=== PATIENT | male | born 1965 | race Caucasian/White ===

== ENCOUNTER 2020-12-13 08:57 | Inpatient (IN) ==
[2020-12-13] MEDS ORDERED: 0.9 % SODIUM CHLORIDE 2,000 ML IV ONE (09:34)
--- NOTE | 2020-12-13 09:39 | Emergency Department Note ---
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 Per the mother who is here w/ him, he has had worsening SOB w/ audible wheezing over the past few days. While he denies any productive cough, she feels that he has likely had some, and his cough is worse than baseline. Additionally he has been having chills and malaise. Otherwise no N/V. He does have chronic diarrhea but this is unchanged from baseline. No sick contacts, no recent travel. He did have COVID19 PNA some time ago, and has not been vaccinated since then. Related Data Home Medications Medication Instructions Recorded Confirmed ascorbic acid (vitamin C) 500 mg 1 g PO DAILY tab 03/02/19 12/13/20 tablet fish, borage, flaxseed oils-omega 1,200 mg PO DAILY cap 03/02/19 12/13/20 3,6,9 comb no.1 1,200 mg capsule vitamin B complex 1 each PO DAILY 06/07/19 12/13/20 cholecalciferol (vitamin D3) 25 1,000 unit PO DAILY cap 08/17/19 12/13/20 mcg (1,000 unit) capsule Previous Rx's Medication Instructions Recorded albuterol sulfate 90 mcg/actuation 2 inh INHALATION Q6H PRN #1 ea 10/06/20 breath activated powder inhaler levothyroxine 75 mcg tablet See Rx Instructions .ROUTE 11/08/20 .COMPLEX #90 tab Allergies Allergy/AdvReac Type Severity Reaction Status Date / Time Nortriptyline Allergy Severe caused Verified 12/13/20 16:23 blindness trimethoprim [From Bactrim] Allergy Severe Unknown Verified 12/13/20 16:23 Sulfa (Sulfonamide AdvReac Severe Unknown Verified 12/13/20 16:23 Antibiotics) codeine AdvReac Intermediate Gastrointestinal Verified 12/13/20 16:23 Upset iodine AdvReac Intermediate Rash Verified 12/13/20 16:23 sulfamethoxazole AdvReac Intermediate Unknown Verified 12/13/20 16:23 [From Bactrim] Review of Systems ROS ROS Narrative: Narrative: All systems ED: reviewed and negative except as stated. PFSH Narrative Patient History Narrative: Narrative: Medical/Surgical/Family History All Active Problems (Updated 12/13/20 @ 12:19 by Otto Esquivel MD) Sepsis (Acute) Breath shortness (Acute) PNA (pneumonia) (Acute) Headache (Acute) Pneumonia due to 2019 novel coronavirus (Acute) COVID-19 (Acute) CAP (community acquired pneumonia) (Acute) Snoring (Chronic) Insomnia (Chronic) Small bowel problem (Chronic) Indigestion (Chronic) Stye (Chronic) Other diseases of pharynx (Chronic) Sinusitis (Chronic) Hematuria (Chronic) History of cardiac murmur (Chronic) History of petit-mal seizures (Chronic) Hypothyroidism (Chronic) Hyperlipidemia (Chronic) Screening for malignant neoplasm of colon (Chronic) Ureteral calculus (Chronic) Fatty infiltration of liver (Chronic) Gagging episode (Chronic) Cough (Chronic) Special screening for malignant neoplasm (Chronic) Otitis externa (Chronic) Allergic rhinitis (Chronic) Upper respiratory infection (Chronic) History of rectal fissure (Chronic) History of rubella (Chronic) Prostate pain (Chronic) Deaf (Chronic) Thyroid disorder (Chronic) Heart murmur (Chronic) Poor sleep (Chronic) Irritable bowel (Chronic) Other digestive problems (Chronic) Enlarged heart (Chronic) Medical History (Updated 12/13/20 @ 12:19 by Otto Esquivel MD) Allergic rhinitis Cough Deaf Enlarged heart Fatty infiltration of liver Gagging episode Heart murmur Hematuria History of cardiac murmur enlarged heart History of petit-mal seizures History of rectal fissure History of rubella Hyperlipidemia Hypothyroidism Indigestion Insomnia Irritable bowel Other digestive problems sees Dr Orozco, had stricures Other diseases of pharynx or nasophyarynx Otitis externa Poor sleep Prostate pain Problems Screening for malignant neoplasm of colon Sinusitis Small bowel problem Snoring Special screening for malignant neoplasm Stye Thyroid disorder Upper respiratory infection Ureteral calculus Surgical History History of colonoscopy (~09/2014) History of oral surgery too small mouth History of prostate surgery Dr Tabares Family History Mother Thyroid disorder Father , age 37 of cancer Cancer Grandmother Thyroid disorder maternal Osteoporosis maternal Alcoholism paternal Grandfather Osteoporosis maternal Arthritis Family/Other Cancer sibling- unknown specifics Social History Smoking Status: Never smoker Alcohol Intake Frequency: a few times a month Substance Use: does not use Exam Narrative Narrative: Narrative: General Limitations: no limitations General appearance: Present alert and in no apparent distress Head Head: Present atraumatic and normocephalic ENT ENT: Present normal oropharynx and mucous membranes moist Chest Chest: Present normal inspection and symmetric chest wall rise Respiratory Respiratory: Present normal lung sounds bilaterally Cardiovascular Cardiovascular: Present regular rate, normal rhythm, +S1 and +S2 Adbominal Abdominal: Present soft and normal bowel sounds; Absent distention and tenderness Extremities Extremities: Absent pedal edema Neurological Neurological: Present alert and oriented X3 Psychiatric Psychiatric: Present normal affect Skin Skin: Present warm (WNL) and dry Course Vital Signs Vital signs: Vital Signs Temperature 101.4 F H 12/13/20 08:58 Pulse Rate 119 H 12/13/20 08:58 Respiratory Rate 16 12/13/20 08:58 Blood Pressure 113/83 12/13/20 08:58 Pulse Oximetry (%) 94 12/13/20 08:58 Temperature 97.9 F 12/13/20 15:03 Pulse Rate 94 H 12/13/20 15:03 Respiratory Rate 20 12/13/20 15:03 Blood Pressure 126/83 12/13/20 15:03 Pulse Oximetry (%) 94 12/13/20 15:03 MDM MDM Narrative Medical decision making narrative: Narrative: 55 yo M w/ chronic lung issues p/w SOB, cough, chills. DDX - sepsis, PNA, viral syndrome/COVID19, dehydration, metabolic/electrolyte d/o Pt presented w/ mild tachycardia but overall well appearing, in NAD. I proceeded w/ sepsis w/u. His CXR showed an infiltrate. Labs were notable for leukocytosis. With that and his tachycardia, along w/ PNA, he met sepsis criteria, but was not in septic shock. I started Tx w/ abx and IVF. There was no serious abnormality on CMP. He tolerated all interventions well and was then admitted to the hospitalist. EKG (0956am) Sinus tachycardia rate of 105, normal ND, QRS, QT/QTc intervals, no STEMI. Similar to previous EKG. Lab Data Lab results reviewed: Yes I reviewed the patient's lab results. Result diagrams: 12/13/20 09:58 12/13/20 09:58 Labs: Lab Results 12/13/20 12/13/20 12/13/20 Range/Units 09:58 09:58 09:58 WBC 17.9 H (4.5-11.0) K/mcL RBC 4.93 (4.50-5.90) M/mcL Hgb 14.3 (13.5-16.5) g/dL Hct 41.9 (41.0-55.0) % MCV 85.0 (80.0-100.0) fL MCH 29.0 (26.0-34.0) pg MCHC 34.1 (31.0-36.0) g/dL RDW 14.5 (11.5-14.5) % Plt Count 182 (140-440) K/mcL MPV 10.1 (7.4-10.4) fL Neut % (Auto) 76.6 (38.0-78.0) % Lymph % (Auto) 11.8 L (15.0-49.0) % [place] % (Auto) 10.8 (1.0-12.0) % Eos % (Auto) 0.3 (0.0-7.0) % Baso % (Auto) 0.5 (0.0-2.0) % Lymph # (Auto) 2.11 (1.50-4.80) K/mcL [place] # (Auto) 1.93 H (0.10-0.90) K/mcL Eos # (Auto) 0.06 (0.00-0.70) K/mcL Baso # (Auto) 0.09 (0.00-0.20) K/mcL Absolute Neutrophils 13.72 H (1.80-8.00) K/mcL VBG Lactic Acid 1.0 (0.5-2.0) mmol/L Sodium 134 (133-145) mmol/L Potassium 3.8 (3.3-5.1) mmol/L Chloride 98 (96-108) mmol/L Carbon Dioxide 24 (22-30) mmol/L Anion Gap 12.0 (8.0-16.0) BUN 9 (6-20) mg/dL Creatinine 0.8 (0.7-1.2) mg/dL GFR Calculation 100 Glucose 101 (70-105) mg/dL Calcium 8.9 (8.6-10.4) mg/dL Total Bilirubin 1.1 H (0.1-1.0) mg/dL AST 22 (<40) U/L ALT 20 (<40) U/L Alkaline Phosphatase 74 (39-117) U/L Total Protein 7.3 (5.9-8.4) gm/dL Albumin 3.8 (3.2-5.2) gm/dL Globulin 3.5 (2.2-3.7) gm/dL Albumin/Globulin Ratio 1.1 (1.0-2.3) Procalcitonin (<0.10) ng/mL Mycoplasma pneumon IgM (Negative) 12/13/20 12/13/20 Range/Units 09:58 09:58 WBC (4.5-11.0) K/mcL RBC (4.50-5.90) M/mcL Hgb (13.5-16.5) g/dL Hct (41.0-55.0) % MCV (80.0-100.0) fL MCH (26.0-34.0) pg MCHC (31.0-36.0) g/dL RDW (11.5-14.5) % Plt Count (140-440) K/mcL MPV (7.4-10.4) fL Neut % (Auto) (38.0-78.0) % Lymph % (Auto) (15.0-49.0) % [place] % (Auto) (1.0-12.0) % Eos % (Auto) (0.0-7.0) % Baso % (Auto) (0.0-2.0) % Lymph # (Auto) (1.50-4.80) K/mcL [place] # (Auto) (0.10-0.90) K/mcL Eos # (Auto) (0.00-0.70) K/mcL Baso # (Auto) (0.00-0.20) K/mcL Absolute Neutrophils (1.80-8.00) K/mcL VBG Lactic Acid (0.5-2.0) mmol/L Sodium (133-145) mmol/L Potassium (3.3-5.1) mmol/L Chloride (96-108) mmol/L Carbon Dioxide (22-30) mmol/L Anion Gap (8.0-16.0) BUN (6-20) mg/dL Creatinine (0.7-1.2) mg/dL GFR Calculation Glucose (70-105) mg/dL Calcium (8.6-10.4) mg/dL Total Bilirubin (0.1-1.0) mg/dL AST (<40) U/L ALT (<40) U/L Alkaline Phosphatase (39-117) U/L Total Protein (5.9-8.4) gm/dL Albumin (3.2-5.2) gm/dL Globulin (2.2-3.7) gm/dL Albumin/Globulin Ratio (1.0-2.3) Procalcitonin 0.09 (<0.10) ng/mL Mycoplasma pneumon IgM Negative (Negative) ED POC Tests ED POC Tests: PETRONA - SARS Antigen Negative CC TIME Critical Care Time Total Critical Care Time: 35 Attestation: The very real possibility of disability/ existed without emergent intervention. No procedures were completed. Discharge Plan Patient/Caregiver Discharge Instructions Pt seen by PLATING INSPECTOR/PA only: No Clinical Impression: Sepsis, Breath shortness, PNA (pneumonia) Patient Disposition: Xfer As Inpt ([facility]) Discharge Date/Time: 12/13/20 14:35
[2020-12-13] MEDS ORDERED: cefTRIAXone 2 GM in DEXTROSE 5% IN WATER 50 ML IV SCH (09:45)
--- NOTE | 2020-12-13 09:53 | XRay Report ---
CLINICAL INFORMATION: sob, cough COMPARISON: 10/13/2020 FINDINGS: Heart size, mediastinum and pulmonary vessels are unremarkable. Minimal airspace disease in the lung bases which may represent residua from prior more extensive disease or scarring. No effusion IMPRESSION: Mild bibasilar infiltrates. This likely represents residual from prior disease or fibrosis. Recurrent disease also possible. Suggest two-view upright chest x-ray in 24 hours for reassessment Interpreted and Authenticated by: Abraham Welch 12/13/20
[2020-12-13] MEDS ORDERED: cefTRIAXone 2 GM in DEXTROSE 5% IN WATER 50 ML IV ONE (10:00)
[2020-12-13 10:53] LABS: Basophils # (Auto) 0.09 K/mcL (0.00-0.20); Basophils % (Auto) 0.5 % (0.0-2.0); Eosinophils # (Auto) 0.06 K/mcL (0.00-0.70); Eosinophils % (Auto) 0.3 % (0.0-7.0); Hematocrit 41.9 % (41.0-55.0); Hemoglobin 14.3 g/dL (13.5-16.5); Lymphocytes # (Auto) 2.11 K/mcL (1.50-4.80); Lymphocytes % (Auto) 11.8 % (15.0-49.0); Mean Corpuscular HGB Conc 34.1 g/dL (31.0-36.0); Mean Platelet Volume 10.1 fL (7.4-10.4); Monocytes # (Auto) 1.93 K/mcL (0.10-0.90); Monocytes % (Auto) 10.8 % (1.0-12.0); Neutrophils % (Auto) 76.6 % (38.0-78.0); Platelet Count 182 K/mcL (140-440); RBC 4.93 M/mcL (4.50-5.90); Red Cell Distribution Width 14.5 % (11.5-14.5); WBC 17.9 K/mcL (4.5-11.0)
[2020-12-13] MEDS ORDERED: AZITHROMYCIN 250 MG TABLET PO ONE (11:09)
[2020-12-13] MEDS ORDERED: ACETAMINOPHEN 325 MG TABLET PO ONE (11:19)
[2020-12-13 11:21] LABS: ALT/SGPT 20 U/L (<40); AST/SGOT 22 U/L (<40); Albumin 3.8 gm/dL (3.2-5.2); Albumin/Globulin Ratio 1.1 (1.0-2.3); Alkaline Phosphatase 74 U/L (39-117); Bilirubin,Total 1.1 mg/dL (0.1-1.0); Blood Urea Nitrogen 9 mg/dL (6-20); Calcium 8.9 mg/dL (8.6-10.4); Carbon Dioxide 24 mmol/L (22-30); Chloride 98 mmol/L (96-108); Globulin 3.5 gm/dL (2.2-3.7); Glomerular Filtration Rate 100; Glucose 101 mg/dL (70-105)
--- NOTE | 2020-12-13 13:10 | Internal Med History&Physical ---
HPI History of Present Illness Patient information: Note initiated : 12/13/20 at 1:05 pm Service Date, if different from initiated Date: [] Patient: Maximino Anand a 55 y/o M admitted on for SOB . Chief Complaint: [] History of present illness: Mr. 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 Patient is recovering from an episode of Covid pneumonia in September however over the last few days was noted to be increasing short of breath/wheezing and febrile for the last 48 hours. With increasing concerns mother brought him to the ER for evaluation. Initial work-up was consistent with multifocal pneumonia with a white count of 17.8/elevated lactate. Patient was started on antibiotic coverage. Subsequently hospitalist service was consulted At the time of my evaluation patient is resting comfortably on 2 L oxygen. Appears nondistressed. Most of history was obtained review of medical records/ER physician and mother Cathy. She is able to endorse history as above. He is reasonably functional able to use the bathroom and uses sign language is. She denies any feeding deficits. She also denies recent choking episodes or aspiration events. She denies hospitalizations. She she feels that he never got over the Covid pneumonia in entirety and has been frequently coughing and wheezing over the last month and a half. Review of systems 10 point review of system was attempted but could not performed.. Mother however denies diarrhea, dysuria, bloody urine, bloody stool, skin rash or joint swelling. PFSH PFSH All Active Problems (Updated 12/13/20 @ 12:19 by Otto Esquivel MD) Sepsis (Acute) Breath shortness (Acute) PNA (pneumonia) (Acute) Headache (Acute) Pneumonia due to 2019 novel coronavirus (Acute) COVID-19 (Acute) CAP (community acquired pneumonia) (Acute) Snoring (Chronic) Insomnia (Chronic) Small bowel problem (Chronic) Indigestion (Chronic) Stye (Chronic) Other diseases of pharynx (Chronic) Sinusitis (Chronic) Hematuria (Chronic) History of cardiac murmur (Chronic) History of petit-mal seizures (Chronic) Hypothyroidism (Chronic) Hyperlipidemia (Chronic) Screening for malignant neoplasm of colon (Chronic) Ureteral calculus (Chronic) Fatty infiltration of liver (Chronic) Gagging episode (Chronic) Cough (Chronic) Special screening for malignant neoplasm (Chronic) Otitis externa (Chronic) Allergic rhinitis (Chronic) Upper respiratory infection (Chronic) History of rectal fissure (Chronic) History of rubella (Chronic) Prostate pain (Chronic) Deaf (Chronic) Thyroid disorder (Chronic) Heart murmur (Chronic) Poor sleep (Chronic) Irritable bowel (Chronic) Other digestive problems (Chronic) Enlarged heart (Chronic) Medical History (Updated 12/13/20 @ 12:19 by Otto Esquivel MD) Allergic rhinitis Cough Deaf Enlarged heart Fatty infiltration of liver Gagging episode Heart murmur Hematuria History of cardiac murmur enlarged heart History of petit-mal seizures History of rectal fissure History of rubella Hyperlipidemia Hypothyroidism Indigestion Insomnia Irritable bowel Other digestive problems sees Dr Orozco, had stricures Other diseases of pharynx or nasophyarynx Otitis externa Poor sleep Prostate pain Problems Screening for malignant neoplasm of colon Sinusitis Small bowel problem Snoring Special screening for malignant neoplasm Stye Thyroid disorder Upper respiratory infection Ureteral calculus Surgical History History of colonoscopy (~09/2014) History of oral surgery too small mouth History of prostate surgery Dr Tabares Family History Mother Thyroid disorder Father , age 37 of cancer Cancer Grandmother Thyroid disorder maternal Osteoporosis maternal Alcoholism paternal Grandfather Osteoporosis maternal Arthritis Family/Other Cancer sibling- unknown specifics Social History marital status: single alcohol intake frequency: a few times a month substance use type: does not use MEDS/ALLERGIES Home Medications and Allergies Home Medications Medication Instructions Recorded Confirmed Type ascorbic acid (vitamin C) 500 mg 1 g PO DAILY tab 03/02/19 10/13/20 History tablet fish, borage, flaxseed oils-omega 1,200 mg PO DAILY cap 03/02/19 10/13/20 History 3,6,9 comb no.1 1,200 mg capsule lysine 500 mg PO HS 06/07/19 10/13/20 History melatonin 3 mg PO HS 06/07/19 10/13/20 History vitamin B complex 1 each PO DAILY 06/07/19 10/13/20 History B-complex with vitamin C ml .ROUTE QDAY 08/17/19 10/13/20 History cholecalciferol (vitamin D3) 25 1,000 unit PO DAILY cap 08/17/19 10/13/20 History mcg (1,000 unit) capsule fexofenadine 180 mg tablet 180 mg PO QDAY 08/17/19 10/13/20 History ipratropium bromide 42 mcg (0.06 2 spray INTRANASAL TID-QID PRN #15 08/21/20 10/13/20 Rx %) nasal spray ml albuterol sulfate 90 mcg/actuation 2 inh INHALATION Q6H PRN #1 ea 10/06/20 10/13/20 Rx breath activated powder inhaler prochlorperazine maleate 10 mg PO Q8H PRN #14 tab 10/13/20 Rx [Compazine] levothyroxine 75 mcg tablet See Rx Instructions .ROUTE 11/08/20 Rx .COMPLEX #90 tab Allergies Allergy/AdvReac Type Severity Reaction Status Date / Time Nortriptyline Allergy Severe caused Verified 10/13/20 09:09 blindness trimethoprim [From Bactrim] Allergy Severe Unknown Verified 10/13/20 09:09 Sulfa (Sulfonamide AdvReac Severe Unknown Verified 10/13/20 09:09 Antibiotics) codeine AdvReac Intermediate Gastrointestinal Verified 10/13/20 09:09 Upset iodine AdvReac Intermediate Rash Verified 10/13/20 09:09 sulfamethoxazole AdvReac Intermediate Unknown Verified 10/13/20 09:09 [From Bactrim] EXAM Constitutional Vitals: Temp Pulse Resp BP Pulse Ox 101.4 F H 102 H 16 125/85 92 12/13/20 11:31 12/13/20 13:01 12/13/20 08:58 12/13/20 13:01 12/13/20 13:01 Comfortable, deaf mute Head normocephalic Oral cavity moist On 2 L oxygen Eye crusting at the palpebral fissure, no subconjunctival edema or redness S1-S2 occasionally irregular Nonlabored breathing Nondistended nontender abdomen Lower extremity no cyanosis clubbing or joint swelling Skin no suspicious lesion Psych resting comfortably Neuro could not be examined DATA Data Completed and Pending Labs: Labs from last 24 hours 12/13/20 12/13/2021 09:58 09:58 09:58 WBC RBC Hgb Hct MCV MCH MCHC RDW Plt Count MPV Neut % (Auto) Lymph % (Auto) [place] % (Auto) Eos % (Auto) Baso % (Auto) Lymph # (Auto) [place] # (Auto) Eos # (Auto) Baso # (Auto) Absolute Neutrophils VBG Lactic Acid 1.0 Sodium 134 Potassium 3.8 Chloride 98 Carbon Dioxide 24 Anion Gap 12.0 BUN 9 Creatinine 0.8 GFR Calculation 100 Glucose 101 Calcium 8.9 Total Bilirubin 1.1 H AST 22 ALT 20 Alkaline Phosphatase 74 Total Protein 7.3 Albumin 3.8 Globulin 3.5 Albumin/Globulin Ratio 1.1 Procalcitonin 0.09 12/13/20 09:58 WBC 17.9 H RBC 4.93 Hgb 14.3 Hct 41.9 MCV 85.0 MCH 29.0 MCHC 34.1 RDW 14.5 Plt Count 182 MPV 10.1 Neut % (Auto) 76.6 Lymph % (Auto) 11.8 L [place] % (Auto) 10.8 Eos % (Auto) 0.3 Baso % (Auto) 0.5 Lymph # (Auto) 2.11 [place] # (Auto) 1.93 H Eos # (Auto) 0.06 Baso # (Auto) 0.09 Absolute Neutrophils 13.72 H VBG Lactic Acid Sodium Potassium Chloride Carbon Dioxide Anion Gap BUN Creatinine GFR Calculation Glucose Calcium Total Bilirubin AST ALT Alkaline Phosphatase Total Protein Albumin Globulin Albumin/Globulin Ratio Procalcitonin A/P Narrative A/P Narrative: * Multifocal pneumonia possibly community-acquired. Start antibiotic coverage on Rocephin/erythromycin. Check COVID-19 * Acute hypoxic respiratory failure secondary to above. Continue supplemental oxygen * Hypothyroid continue thyroxine * History of reactive airway disease continue bronchodilators * Prophylaxis Heparin Plan * Inpatient admission * Telemetry monitoring * Antibiotic coverage * Supplemental oxygen * Pre-existing medical condition management home medications * Aspiration precautions/PT OT/nutrition support * Discharge planning per case management Time Spent With Patient Time: Total time spent is greater than 50% in coordination of care (as documented) at patient's floor/unit and/or counseling patient:
[2020-12-13] MEDS ORDERED: POLYETHYLENE GLYCOL 3350 17 GM PACKET PO PRN (15:03)
[2020-12-13] MEDS ORDERED: MAGNESIUM SULFATE 2 GM/50 ML BAG IV PRN (15:03)
[2020-12-13] MEDS ORDERED: MELATONIN 3 MG TABLET PO PRN (15:03)
[2020-12-13] MEDS ORDERED: ACETAMINOPHEN 650 MG/65 ML BAG IV PRN (15:03)
[2020-12-13] MEDS ORDERED: ONDANSETRON 4 MG/2 ML VIAL IV PRN (15:03)
[2020-12-13] MEDS ORDERED: ONDANSETRON 4 MG ODT TABLET SL PRN (15:03)
[2020-12-13] MEDS ORDERED: BISACODYL 10 MG SUPP.RECT PR PRN (15:03)
[2020-12-13] MEDS ORDERED: ACETAMINOPHEN 325 MG TABLET PO PRN (15:03)
[2020-12-13] MEDS ORDERED: ALBUTEROL SULFATE 200 PUFF INHALER INH PRN (15:03)
[2020-12-13] MEDS ORDERED: POTASSIUM CHLORIDE 40 MEQ in DEXTROSE 5% IN WATER 500 ML IV PRN (15:03)
[2020-12-13] MEDS: 0.9 % SODIUM CHLORIDE 1,000 ML IV SCH (16:35)
[2020-12-13] MEDS: 0.9 % SODIUM CHLORIDE 10 ML SYRINGE IV SCH ×2 (16:44→20:37)
[2020-12-13 18:12] LABS: Appearance,Urine CLOUDY (Clear); Bilirubin,Urine Negative (Negative); Color,Urine YELLOW; Culture Indicated,Urine yes; Glucose,Urine (UA) Negative (Negative); Ketones,Urine 20 mg/dL (Negative); Leukocyte Esterase,Urine 500 /ug (Negative); Mucus,Urine MOD /hpf; Nitrate,Urine Negative (Negative); Protein,Urine 30 mg/dL (Negative); Sperm,Urine ABSENT /hpf (Absent); Urine Blood Negative (Negative); Urine RBC 0 /hpf (0-3); Urine Squamous Epithelial Cell < 1 /hpf (0-4); Urine WBC > 182 /hpf (0-4); Urobilinogen,Urine Negative
[2020-12-13] MEDS: DOCUSATE SODIUM 100 MG CAPSULE PO SCH (20:36)
[2020-12-13] MEDS: SENNOSIDES/DOCUSATE SODIUM 1 TAB TABLET PO SCH (20:37)
[2020-12-13] MEDS: HEPARIN 5,000 UNIT/ML VIAL SQ SCH (20:38)
[2020-12-14] MEDS: 0.9 % SODIUM CHLORIDE 10 ML SYRINGE IV SCH ×3 (04:46→21:38)
[2020-12-14 07:03] LABS: Basophils # (Auto) 0.08 K/mcL (0.00-0.20); Basophils % (Auto) 0.5 % (0.0-2.0); Eosinophils # (Auto) 0.18 K/mcL (0.00-0.70); Eosinophils % (Auto) 1.1 % (0.0-7.0); Hematocrit 40.2 % (41.0-55.0); Hemoglobin 13.7 g/dL (13.5-16.5); Lymphocytes # (Auto) 2.62 K/mcL (1.50-4.80); Lymphocytes % (Auto) 16.5 % (15.0-49.0); Mean Cell Volume 84.1 fL (80.0-100.0); Mean Corpuscular HGB Conc 34.1 g/dL (31.0-36.0); Mean Platelet Volume 10.1 fL (7.4-10.4); Monocytes # (Auto) 1.49 K/mcL (0.10-0.90); Monocytes % (Auto) 9.4 % (1.0-12.0); Neutrophils % (Auto) 72.5 % (38.0-78.0); Platelet Count 195 K/mcL (140-440); RBC 4.78 M/mcL (4.50-5.90); Red Cell Distribution Width 14.3 % (11.5-14.5); WBC 15.8 K/mcL (4.5-11.0)
[2020-12-14 07:27] LABS: ALT/SGPT 23 U/L (<40); AST/SGOT 20 U/L (<40); Albumin 3.6 gm/dL (3.2-5.2); Albumin/Globulin Ratio 1.1 (1.0-2.3); Alkaline Phosphatase 69 U/L (39-117); Bilirubin,Direct 0.2 mg/dL (<0.3); Bilirubin,Total 0.7 mg/dL (0.1-1.0); Blood Urea Nitrogen 6 mg/dL (6-20); Calcium 8.3 mg/dL (8.6-10.4); Carbon Dioxide 24 mmol/L (22-30); Chloride 103 mmol/L (96-108); Globulin 3.2 gm/dL (2.2-3.7); Glomerular Filtration Rate 113; Glucose 94 mg/dL (70-105); Lactate Dehydrogenase 196 U/L (135-225); Phosphorous 2.1 mg/dL (2.5-4.5); Triglycerides 95 mg/dL (<150); Uric Acid 4.4 mg/dL (2.5-8.0)
[2020-12-14] MEDS: cefTRIAXone 2 GM in DEXTROSE 5% IN WATER 50 ML IV SCH (08:41)
[2020-12-14] MEDS: MULTIVIT,THER IRON,CA,FA & MIN 1 TABLET PO SCH (08:42)
[2020-12-14] MEDS: HEPARIN 5,000 UNIT/ML VIAL SQ SCH ×2 (08:42→21:38)
[2020-12-14] MEDS: THIAMINE 100 MG TABLET PO SCH (08:42)
[2020-12-14] MEDS: DOCUSATE SODIUM 100 MG CAPSULE PO SCH ×2 (08:42→21:38)
[2020-12-14] MEDS ORDERED: NEUTRA PHOS 1 PACKET PO PRN (08:46)
[2020-12-14] MEDS: AZITHROMYCIN 500 MG in DEXTROSE 5% IN WATER 250 ML IV SCH (10:43)
[2020-12-14] MEDS: 0.9 % SODIUM CHLORIDE 1,000 ML IV SCH ×2 (10:46→13:12)
--- NOTE | 2020-12-14 14:44 | EKG ---
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 Measurements Intervals [place] Rate: 105 P: 42 OK: 155 QRS: -14 QRSD: 81 T: 29 QT: 315 QTc: 417 Interpretive Statements Sinus tachycardia Left ventricular hypertrophy NO PRIOR TRACING FOR COMPARISON ABNORMAL ECG Electronically Signed On 12-14-2020 14:43:36 PDT by Benjamín Betancourt M.D. /store/[email or web address]/[id number]
[2020-12-14] MEDS: SENNOSIDES/DOCUSATE SODIUM 1 TAB TABLET PO SCH (21:38)
[2020-12-15] MEDS: 0.9 % SODIUM CHLORIDE 10 ML SYRINGE IV SCH ×3 (06:08→21:54)
--- NOTE | 2020-12-15 06:19 | XRay Report ---
CLINICAL INFORMATION: Follow-up bibasilar infiltrates COMPARISON: 12/13/2020 FINDINGS: Heart size, mediastinum and pulmonary vessels are normal. Interval resolution of bibasilar infiltrates noted-lungs are clear. No effusions. IMPRESSION: Interval resolution of bibasilar infiltrates or atelectasis. Interpreted and Authenticated by: Abraham Welch 12/15/20
[2020-12-15] MEDS: MULTIVIT,THER IRON,CA,FA & MIN 1 TABLET PO SCH (08:09)
[2020-12-15] MEDS: THIAMINE 100 MG TABLET PO SCH (08:09)
[2020-12-15] MEDS: cefTRIAXone 2 GM in DEXTROSE 5% IN WATER 50 ML IV SCH (08:09)
[2020-12-15] MEDS: DOCUSATE SODIUM 100 MG CAPSULE PO SCH ×3 (08:09→21:54)
[2020-12-15] MEDS: HEPARIN 5,000 UNIT/ML VIAL SQ SCH ×2 (08:09→21:53)
[2020-12-15 08:14] LABS: Basophils # (Auto) 0.08 K/mcL (0.00-0.20); Basophils % (Auto) 0.6 % (0.0-2.0); Eosinophils # (Auto) 0.33 K/mcL (0.00-0.70); Eosinophils % (Auto) 2.5 % (0.0-7.0); Hemoglobin 14.1 g/dL (13.5-16.5); Lymphocytes # (Auto) 2.63 K/mcL (1.50-4.80); Lymphocytes % (Auto) 19.9 % (15.0-49.0); Mean Cell Volume 85.3 fL (80.0-100.0); Mean Corpuscular HGB Conc 32.8 g/dL (31.0-36.0); Monocytes # (Auto) 1.01 K/mcL (0.10-0.90); Monocytes % (Auto) 7.7 % (1.0-12.0); Neutrophils % (Auto) 69.3 % (38.0-78.0); Platelet Count 263 K/mcL (140-440); RBC 5.04 M/mcL (4.50-5.90); Red Cell Distribution Width 14.3 % (11.5-14.5); WBC 13.2 K/mcL (4.5-11.0)
[2020-12-15 08:17] LABS: ALT/SGPT 32 U/L (<40); AST/SGOT 29 U/L (<40); Albumin 3.4 gm/dL (3.2-5.2); Albumin/Globulin Ratio 0.9 (1.0-2.3); Alkaline Phosphatase 74 U/L (39-117); Bilirubin,Direct < 0.2 mg/dL (0-0.3); Bilirubin,Total 0.4 mg/dL (0.1-1.0); Blood Urea Nitrogen 6 mg/dL (6-20); Calcium 8.3 mg/dL (8.6-10.4); Carbon Dioxide 21 mmol/L (22-30); Chloride 103 mmol/L (96-108); Globulin 3.6 gm/dL (2.2-3.7); Glomerular Filtration Rate 121; Glucose 88 mg/dL (70-105); Lactate Dehydrogenase 206 U/L (135-225); Phosphorous 2.5 mg/dL (2.5-4.5); Triglycerides 125 mg/dL (<150); Uric Acid 4.2 mg/dL (2.5-8.0)
[2020-12-15] MEDS: 0.9 % SODIUM CHLORIDE 1,000 ML IV SCH (09:49)
[2020-12-15] MEDS: AZITHROMYCIN 500 MG in DEXTROSE 5% IN WATER 250 ML IV SCH (09:53)
--- NOTE | 2020-12-15 11:38 | Internal Med Progress Note ---
SUBJECTIVE Subjective Patient information: Note initiated : 12/14/20 at 10:34 am Service Date, if different from initiated Date: [] Patient: Maximino Anand a 55 y/o M admitted on 12/13/20 for SOB . Chief Complaint: [] Interval history: Mr. 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 Patient is recovering from an episode of Covid pneumonia in September however over the last few days was noted to be increasing short of breath/wheezing and febrile for the last 48 hours. With increasing concerns mother brought him to the ER for evaluation. Initial work-up was consistent with multifocal pneumonia with a white count of 17.8/elevated lactate. Patient was started on antibiotic coverage. [facility] (formerly [facility]] hospitalist service was consulted At the time of my evaluation patient is resting comfortably on 2 L oxygen. Appears nondistressed. Most of history was obtained review of medical records/ER physician and mother Cathy. She is able to endorse history as above. He is reasonably functional able to use the bathroom and uses sign language is. She denies any feeding deficits. She also denies recent choking episodes or aspiration events. She denies hospitalizations. She she feels that he never got over the Covid pneumonia in entirety and has been frequently coughing and wheezing over the last month and a half. 12/14-patient doing a lot better. White count down from 17.9-15.8. Afebrile. On room air. Feeling a lot better. No overnight events or hemodynamic stability. Stable labs, Phosphorus 2.1 on replacement, morbid bedside using sign language. Patient is deaf mute. Able to ambulate and use bathroom. No anxiety Constitutional Vitals: Vital Signs Temp Pulse Resp BP Pulse Ox 97.6 F 101 H 22 111/71 93 12/15/20 11:15 12/15/20 11:15 12/15/20 11:15 12/15/20 11:15 12/15/20 11:15 Period Temp Pulse Resp BP Sys/Duffy Pulse Ox Last 24 Hr 97.6 F-98.8 F 86-101 18-22 111-136/71-86 93-96 Intake and Output 12/14/20 12/15/20 12/15/20 21:59 05:59 13:59 Intake Total 325 205 7788 Balance 274 825 0475 Weight 87.589 kg Mom at bedside using sign language Nonlabored breathing Nondistended abdomen No anxiety Intake & Output: Intake & Output 12/14/20 12/15/20 12/15/20 21:59 05:59 13:59 Intake Total 780 276 3076 Balance 538 746 9740 Weight 87.589 kg Intake: IV 1050 Sodium Chloride 0.9% 1,000 ml @ 1000 50 mls/hr IV .Q20H [facility] Rx#: [id number] Rocephin 2 gm In Dextrose 5% in 50 Water 50 ml @ 100 mls/hr IV DAILY [facility] Rx#:[id number] Oral 400 400 Other: Meal Dinner Percent of Meal Consumed 75% Feeding Ability Assist with Tray Set Up Urine Appearance Clear Urine Color Straw Urine Odor Normal Stool Size Moderate Smear Moderate Stool Color Brown Brown Brown Stool Consistency Soft Loose Loose Loose # Voids 1 1 # Bowel Movements 1 1 1 OBJ DATA Labs CBC & Chem 7: 12/15/20 06:05 12/15/20 06:04 Labs: Abnormal Lab Results 12/15/20 12/15/20 12/14/20 06:05 06:04 06:09 WBC 13.2 H Hct Lymph % (Auto) [place] # (Auto) 1.01 H Absolute Neutrophils 9.14 H Carbon Dioxide 21 L Creatinine 0.5 L 0.6 L Calcium 8.3 L 8.3 L Phosphorus 2.1 L Total Bilirubin C-Reactive Protein 17.40 H Albumin/Globulin Ratio 0.9 L Urine Appearance Urine Protein Urine Ketones Ur Leukocyte Esterase Urine WBC Urine Mucus 12/14/20 12/13/20 12/13/20 06:09 17:28 09:58 WBC 15.8 H Hct 40.2 L Lymph % (Auto) [place] # (Auto) 1.49 H Absolute Neutrophils 11.47 H Carbon Dioxide Creatinine Calcium Phosphorus Total Bilirubin 1.1 H C-Reactive Protein Albumin/Globulin Ratio Urine Appearance Cloudy A Urine Protein 30 A Urine Ketones 20 A Ur Leukocyte Esterase 500 A Urine WBC > 182 H Urine Mucus Mod A 12/13/20 09:58 WBC 17.9 H Hct Lymph % (Auto) 11.8 L [place] # (Auto) 1.93 H Absolute Neutrophils 13.72 H Carbon Dioxide Creatinine Calcium Phosphorus Total Bilirubin C-Reactive Protein Albumin/Globulin Ratio Urine Appearance Urine Protein Urine Ketones Ur Leukocyte Esterase Urine WBC Urine Mucus Meds: Medications Acetaminophen (Acetaminophen 325 Mg Tablet) 650 mg PO Q4-6HP PRN; Protocol PRN Reason: Per Pain Protocol/Fever > 101 Albuterol Sulfate (Albuterol Sulfate 200 Puff Inhaler) 1 - 2 puff INH Q4HP PRN PRN Reason: Shortness Of Breath Bisacodyl (Bisacodyl 10 Mg Supp.Rect) 10 mg [place] Q2-3DAYS PRN PRN Reason: Constipation Docusate Sodium (Docusate Sodium 100 Mg Capsule) 100 mg PO BID [facility] Last Admin: 12/15/20 08:12 Dose: Not Given Documented by: Heparin Sodium (Porcine) (Heparin 5,000 Unit/Ml Vial) 5,000 unit SQ Q12 [facility] Last Admin: 12/15/20 08:09 Dose: 5,000 unit Documented by: Potassium Chloride 40 meq/ (Dextrose) 520 mls @ 130 mls/hr IV UD PRN PRN Reason: K+ = or < 3.5 Acetaminophen (Ofirmev) 650 mg in 65 mls @ 130 mls/hr IV Q6HP PRN; Protocol PRN Reason: Per Pain Protocol/Fever > 101 Magnesium Sulfate (Magnesium Sulfate) 2 gm in 50 mls @ 50 mls/hr IV UD PRN PRN Reason: MG = or < 1.7 Sodium Chloride (Sodium Chloride 0.9%) 1,000 mls @ 50 mls/hr IV .Q20H [facility] Stop: 12/16/20 03:02 Last Admin: 12/15/20 09:49 Dose: 50 mls/hr Documented by: Ceftriaxone Sodium 2 gm/ (Dextrose) 50 mls @ 100 mls/hr IV DAILY [facility]; Protocol Last Infusion: 12/15/20 10:35 Dose: Infused Documented by: Iron Carb/Multivit/[place]/Folic Acid (Multivit,Ther Iron,Ca,Fa & Min 1 Tablet) 1 tab PO DAILY [facility] Last Admin: 12/15/20 08:09 Dose: 1 tab Documented by: Melatonin (Melatonin 3 Mg Tablet) 3 mg PO HSP PRN PRN Reason: Insomnia Ondansetron HCl (Ondansetron 4 Mg Odt Tablet) 4 mg SL Q4-6HP PRN; Protocol PRN Reason: Nausea And Vomiting Ondansetron HCl (Ondansetron 4 Mg/2 Ml Vial) 4 mg IV Q4-6HP PRN; Protocol PRN Reason: Nausea And Vomiting Polyethylene Glycol (Polyethylene Glycol 3350 17 Gm Packet) 17 gm PO DAILYP PRN PRN Reason: Constipation Potassium/Phosphorus/Sodium (Neutra Phos 1 Packet) 2 packet PO ONCE PRN PRN Reason: For phosphorus less than 2.5 Senna/Docusate Sodium (Sennosides/Docusate Sodium 1 Tab Tablet) 1 tab PO HS [facility] Last Admin: 12/14/20 21:38 Dose: Not Given Documented by: Sodium Chloride (0.9 % Sodium Chloride 10 Ml Syringe) 10 ml IV Q8 [facility] Last Admin: 12/15/20 06:08 Dose: Not Given Documented by: Thiamine HCl (Thiamine 100 Mg Tablet) 100 mg PO DAILY [facility] Last Admin: 12/15/20 08:09 Dose: 100 mg Documented by: A/P Narrative A/P Narrative: * Multifocal pneumonia possibly community-acquired. Clinically responding to antibiotic coverage on Rocephin/azithromycin. COVID-19 negative * Acute hypoxic respiratory failure secondary to above. Now on room air. Doing much better. * Hypothyroid continue thyroxine * History of reactive airway disease continue bronchodilators * Prophylaxis Heparin Plan * Transfer to medical floor * Continue antibiotic coverage and de-escalate based on culture sensitivities * Supplemental oxygen * Pre-existing medical condition management home medications * PT OT/nutrition support Time Spent With Patient Time: Total time spent is greater than 50% in coordination of care (as documented) at patient's floor/unit and/or counseling patient: QUALITY VTE Deep Vein Thrombosis/Pulmonary Embolism Present on Admission: No
--- NOTE | 2020-12-15 11:41 | Internal Med Progress Note ---
SUBJECTIVE Subjective Patient information: Note initiated : 12/15/20 at 11:37 am Service Date, if different from initiated Date: [] Patient: Maximino Anand a 55 y/o M admitted on 12/13/20 for SOB . Chief Complaint: [] Interval history: Mr. 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 Patient is recovering from an episode of Covid pneumonia in September however over the last few days was noted to be increasing short of breath/wheezing and febrile for the last 48 hours. With increasing concerns mother brought him to the ER for evaluation. Initial work-up was consistent with multifocal pneumonia with a white count of 17.8/elevated lactate. Patient was started on antibiotic coverage. [facility] hospitalist service was consulted At the time of my evaluation patient is resting comfortably on 2 L oxygen. Appears nondistressed. Most of history was obtained review of medical records/ER physician and mother Cathy. She is able to endorse history as above. He is reasonably functional able to use the bathroom and uses sign language is. She denies any feeding deficits. She also denies recent choking episodes or aspiration events. She denies hospitalizations. She she feels that he never got over the Covid pneumonia in entirety and has been frequently coughing and wheezing over the last month and a half. 12/14-patient doing a lot better. White count down from 17.9-15.8. Afebrile. On room air. Feeling a lot better. No overnight events or hemodynamic stability. Stable labs, Phosphorus 2.1 on replacement, patient's mother at bedside using sign language. Patient is deaf mute. Able to ambulate and use bathroom. No anxiety 12/15-patient clinically improved. White count down to 13,000. Currently on room air. Still feels very weak. Mother concerned about pneumonia however interval imaging shows improved chest infiltrates. Discharge in 24 hours. No overnight events. No concerns per nursing staff. Continue daily therapies. Constitutional Vitals: Vital Signs Temp Pulse Resp BP Pulse Ox 97.6 F 101 H 22 111/71 93 12/15/20 11:15 12/15/20 11:15 12/15/20 11:15 12/15/20 11:15 12/15/20 11:15 Period Temp Pulse Resp BP Sys/Duffy Pulse Ox Last 24 Hr 97.6 F-98.8 F 86-101 18-22 111-136/71-86 93-96 Intake and Output 12/14/20 12/15/20 12/15/20 21:59 05:59 13:59 Intake Total 834 752 1420 Balance 634 656 7482 Weight 87.589 kg Alert and responding to sign language Nonlabored breathing No anxiety Tolerating diet and ambulating Intake & Output: Intake & Output 12/14/20 12/15/20 12/15/20 21:59 05:59 13:59 Intake Total 786 761 5477 Balance 336 933 5991 Weight 87.589 kg Intake: IV 1300 Sodium Chloride 0.9% 1,000 ml @ 1000 50 mls/hr IV .Q20H [facility] Rx#: [id number] Zithromax 500 mg In Dextrose 5% 250 in Water 250 ml @ 250 mls/hr IV DAILY@1000 [facility] Rx#:[id number] Rocephin 2 gm In Dextrose 5% in 50 Water 50 ml @ 100 mls/hr IV DAILY [facility] Rx#:[id number] Oral 400 400 Other: Meal Dinner Percent of Meal Consumed 75% Feeding Ability Assist with Tray Set Up Urine Appearance Clear Urine Color Straw Urine Odor Normal Stool Size Moderate Smear Moderate Stool Color Brown Brown Brown Stool Consistency Soft Loose Loose Loose # Voids 1 1 # Bowel Movements 1 1 1 OBJ DATA Labs CBC & Chem 7: 12/15/20 06:05 12/15/20 06:04 Labs: Abnormal Lab Results 12/15/20 12/15/20 12/14/20 06:05 06:04 06:09 WBC 13.2 H Hct Lymph % (Auto) [place] # (Auto) 1.01 H Absolute Neutrophils 9.14 H Carbon Dioxide 21 L Creatinine 0.5 L 0.6 L Calcium 8.3 L 8.3 L Phosphorus 2.1 L Total Bilirubin C-Reactive Protein 17.40 H Albumin/Globulin Ratio 0.9 L Urine Appearance Urine Protein Urine Ketones Ur Leukocyte Esterase Urine WBC Urine Mucus 12/14/20 12/13/20 12/13/20 06:09 17:28 09:58 WBC 15.8 H Hct 40.2 L Lymph % (Auto) [place] # (Auto) 1.49 H Absolute Neutrophils 11.47 H Carbon Dioxide Creatinine Calcium Phosphorus Total Bilirubin 1.1 H C-Reactive Protein Albumin/Globulin Ratio Urine Appearance Cloudy A Urine Protein 30 A Urine Ketones 20 A Ur Leukocyte Esterase 500 A Urine WBC > 182 H Urine Mucus Mod A 12/13/20 09:58 WBC 17.9 H Hct Lymph % (Auto) 11.8 L [place] # (Auto) 1.93 H Absolute Neutrophils 13.72 H Carbon Dioxide Creatinine Calcium Phosphorus Total Bilirubin C-Reactive Protein Albumin/Globulin Ratio Urine Appearance Urine Protein Urine Ketones Ur Leukocyte Esterase Urine WBC Urine Mucus Meds: Medications Acetaminophen (Acetaminophen 325 Mg Tablet) 650 mg PO Q4-6HP PRN; Protocol PRN Reason: Per Pain Protocol/Fever > 101 Albuterol Sulfate (Albuterol Sulfate 200 Puff Inhaler) 1 - 2 puff INH Q4HP PRN PRN Reason: Shortness Of Breath Bisacodyl (Bisacodyl 10 Mg Supp.Rect) 10 mg SC Q2-3DAYS PRN PRN Reason: Constipation Docusate Sodium (Docusate Sodium 100 Mg Capsule) 100 mg PO BID [facility] Last Admin: 12/15/20 08:12 Dose: Not Given Documented by: Heparin Sodium (Porcine) (Heparin 5,000 Unit/Ml Vial) 5,000 unit SQ Q12 [facility] Last Admin: 12/15/20 08:09 Dose: 5,000 unit Documented by: Potassium Chloride 40 meq/ (Dextrose) 520 mls @ 130 mls/hr IV UD PRN PRN Reason: K+ = or < 3.5 Acetaminophen (Ofirmev) 650 mg in 65 mls @ 130 mls/hr IV Q6HP PRN; Protocol PRN Reason: Per Pain Protocol/Fever > 101 Magnesium Sulfate (Magnesium Sulfate) 2 gm in 50 mls @ 50 mls/hr IV UD PRN PRN Reason: MG = or < 1.7 Sodium Chloride (Sodium Chloride 0.9%) 1,000 mls @ 50 mls/hr IV .Q20H [facility] Stop: 12/16/20 03:02 Last Admin: 12/15/20 09:49 Dose: 50 mls/hr Documented by: Ceftriaxone Sodium 2 gm/ (Dextrose) 50 mls @ 100 mls/hr IV DAILY [facility]; Protocol Last Infusion: 12/15/20 10:35 Dose: Infused Documented by: Iron Carb/Multivit/[place]/Folic Acid (Multivit,Ther Iron,Ca,Fa & Min 1 Tablet) 1 tab PO DAILY [facility] Last Admin: 12/15/20 08:09 Dose: 1 tab Documented by: Melatonin (Melatonin 3 Mg Tablet) 3 mg PO HSP PRN PRN Reason: Insomnia Ondansetron HCl (Ondansetron 4 Mg Odt Tablet) 4 mg SL Q4-6HP PRN; Protocol PRN Reason: Nausea And Vomiting Ondansetron HCl (Ondansetron 4 Mg/2 Ml Vial) 4 mg IV Q4-6HP PRN; Protocol PRN Reason: Nausea And Vomiting Polyethylene Glycol (Polyethylene Glycol 3350 17 Gm Packet) 17 gm PO DAILYP PRN PRN Reason: Constipation Potassium/Phosphorus/Sodium (Neutra Phos 1 Packet) 2 packet PO ONCE PRN PRN Reason: For phosphorus less than 2.5 Senna/Docusate Sodium (Sennosides/Docusate Sodium 1 Tab Tablet) 1 tab PO HS [facility] Last Admin: 12/14/20 21:38 Dose: Not Given Documented by: Sodium Chloride (0.9 % Sodium Chloride 10 Ml Syringe) 10 ml IV Q8 [facility] Last Admin: 12/15/20 06:08 Dose: Not Given Documented by: Thiamine HCl (Thiamine 100 Mg Tablet) 100 mg PO DAILY [facility] Last Admin: 12/15/20 08:09 Dose: 100 mg Documented by: A/P Narrative A/P Narrative: * Multifocal pneumonia community-acquired. Clinically responding to antibiotic coverage on Rocephin/azithromycin. COVID-19 negative. Improved interval chest imaging * Acute hypoxic respiratory failure -clinically resolved now on room air. * Hypothyroid continue home dose thyroxine * History of reactive airway disease continue bronchodilators * Prophylaxis Heparin Plan * DC telemetry * Continue antibiotic coverage and de-escalate based on culture sensitivities * Supplemental oxygen * Pre-existing medical condition management home medications * PT OT/nutrition support * Discharge in 24 hours Time Spent With Patient Time: Total time spent is greater than 50% in coordination of care (as documented) at patient's floor/unit and/or counseling patient: QUALITY VTE Deep Vein Thrombosis/Pulmonary Embolism Present on Admission: No
[2020-12-15] MEDS: SENNOSIDES/DOCUSATE SODIUM 1 TAB TABLET PO SCH (21:54)
[2020-12-16] MEDS ORDERED: POTASSIUM CHLORIDE 20 MEQ TABLET PO PRN (00:16)
[2020-12-16] MEDS ORDERED: POTASSIUM CHLORIDE 20 MEQ TABLET PO ONE (00:39)
[2020-12-16] MEDS: 0.9 % SODIUM CHLORIDE 10 ML SYRINGE IV SCH (04:25)
[2020-12-16 07:00] LABS: Basophils % (Auto) 1.1 % (0.0-2.0); Eosinophils # (Auto) 0.44 K/mcL (0.00-0.70); Eosinophils % (Auto) 4.7 % (0.0-7.0); Hematocrit 43.4 % (41.0-55.0); Hemoglobin 14.6 g/dL (13.5-16.5); Lymphocytes # (Auto) 2.94 K/mcL (1.50-4.80); Lymphocytes % (Auto) 31.2 % (15.0-49.0); Mean Cell Volume 82.7 fL (80.0-100.0); Mean Corpuscular HGB Conc 33.6 g/dL (31.0-36.0); Mean Platelet Volume 9.7 fL (7.4-10.4); Monocytes # (Auto) 0.77 K/mcL (0.10-0.90); Monocytes % (Auto) 8.2 % (1.0-12.0); Neutrophils % (Auto) 54.8 % (38.0-78.0); Platelet Count 294 K/mcL (140-440); RBC 5.25 M/mcL (4.50-5.90); WBC 9.4 K/mcL (4.5-11.0)
[2020-12-16 07:59] LABS: ALT/SGPT 36 U/L (<40); AST/SGOT 28 U/L (<40); Albumin 3.8 gm/dL (3.2-5.2); Albumin/Globulin Ratio 1.1 (1.0-2.3); Alkaline Phosphatase 76 U/L (39-117); Bilirubin,Direct < 0.2 mg/dL (0-0.3); Bilirubin,Total 0.3 mg/dL (0.1-1.0); Blood Urea Nitrogen 6 mg/dL (6-20); Carbon Dioxide 24 mmol/L (22-30); Chloride 102 mmol/L (96-108); Globulin 3.5 gm/dL (2.2-3.7); Glomerular Filtration Rate 106; Glucose 85 mg/dL (70-105); Lactate Dehydrogenase 186 U/L (135-225); Phosphorous 3.4 mg/dL (2.5-4.5); Triglycerides 162 mg/dL (<150); Uric Acid 4.6 mg/dL (2.5-8.0)
[2020-12-16] MEDS: DOCUSATE SODIUM 100 MG CAPSULE PO SCH (08:07)
[2020-12-16] MEDS: HEPARIN 5,000 UNIT/ML VIAL SQ SCH (09:18)
[2020-12-16] MEDS: cefTRIAXone 2 GM in DEXTROSE 5% IN WATER 50 ML IV SCH (09:18)
[2020-12-16] MEDS: THIAMINE 100 MG TABLET PO SCH (09:18)
[2020-12-16] MEDS: MULTIVIT,THER IRON,CA,FA & MIN 1 TABLET PO SCH (09:18)
--- NOTE | 2020-12-16 11:23 | Discharge Summary ---
Discharge Provider Provider Patient information: Note initiated : 12/16/20 at 11:20 am Service Date, if different from initiated Date: [] Patient: Maximino Anand 55 y/o M admitted on 12/13/20 for SOB . Chief Complaint: Dyspnea Date of admission: 12/13/20 14:43 Discharge date: 12/16/20 Primary care physician: Ruma Snyder Consults: 12/13/20 12:44 Consult to Physician [CONS] Stat Comment: Consulting Provider: Domingo Lopez Reason For Exam: Physician to Consult Discharge Meds Discharge Medications Home Medications ascorbic acid (vitamin C) 500 mg tablet 1 g PO DAILY tab 03/02/19 [History Confirmed 12/13/20 Last Taken 12/12/20 22:00] fish, borage, flaxseed oils-omega 3,6,9 comb no.1 1,200 mg capsule 1,200 mg PO DAILY cap 03/02/19 [History Confirmed 12/13/20 Last Taken 12/12/20 12:00] vitamin B complex 1 each PO DAILY 06/07/19 [History Confirmed 12/13/20 Last Taken 12/12/20 12:00] cholecalciferol (vitamin D3) 25 mcg (1,000 unit) capsule 1,000 unit PO DAILY cap 08/17/19 [History Confirmed 12/13/20 Last Taken 12/12/20 22:00] albuterol sulfate 90 mcg/actuation breath activated powder inhaler 2 inh INHALATION Q6H PRN #1 ea 10/06/20 [Rx Confirmed 12/13/20 Last Taken 09/16/20] levothyroxine 75 mcg tablet See Rx Instructions .ROUTE .COMPLEX #90 tab 11/08/20 [Rx Confirmed 12/13/20 Last Taken 12/12/20 12:00] cefdinir 300 mg PO BID #2 cap 12/16/20 [Rx Last Taken Unknown] COURSE Hospital Course Hospital course: Mr. 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 Patient is recovering from an episode of Covid pneumonia in September however over the last few days was noted to be increasing short of breath/wheezing and febrile for the last 48 hours. With increasing concerns mother brought him to the ER for evaluation. Initial work-up was consistent with multifocal pneumonia with a white count of 17.8/elevated lactate. Patient was started on antibiotic coverage. [facility] hospitalist service was consulted At the time of my evaluation patient is resting comfortably on 2 L oxygen. Appears nondistressed. Most of history was obtained review of medical records/ER physician and mother Cathy. She is able to endorse history as above. He is reasonably functional able to use the bathroom and uses sign language is. She denies any feeding deficits. She also denies recent choking episodes or aspiration events. She denies hospitalizations. She she feels that he never got over the Covid pneumonia in entirety and has been frequently coughing and wheezing over the last month and a half. 12/14-patient doing a lot better. White count down from 17.9-15.8. Afebrile. On room air. Feeling a lot better. No overnight events or hemodynamic stability. Stable labs, Phosphorus 2.1 on replacement, patient's mother at bedside using sign language. Patient is deaf mute. Able to ambulate and use bathroom. No anxiety 12/15-patient clinically improved. White count down to 13,000. Currently on room air. Still feels very weak. Mother concerned about pneumonia however interval imaging shows improved chest infiltrates. Discharge in 24 hours. No overnight events. No concerns per nursing staff. Continue daily therapies. 12/16-continues to improve, white count is normalized. Remains on room air. Stable for discharge. Will complete outpatient course of antibiotics. Discharge diagnosis: Community-acquired pneumonia with bibasilar infiltrates Reason for admission: Pneumonia Procedures: None Pertinent studies/significant findings: Admitting chest x-ray with bibasilar infiltrates which resolved on follow-up radiograph prior to discharge. Complications: None Time Spent with Patient Time attestation: Total time spent providing and/or coordinating discharge services: Time spent: Less than 30 minutes EXAM Constitutional Vitals: Temp Pulse Resp BP Pulse Ox 97.2 F 82 16 106/71 90 12/16/20 11:19 12/16/20 11:19 12/16/20 11:19 12/16/20 11:19 12/16/20 11:19 GENERAL: Sleeping, arouses easily to touch, no acute distress RESPIRATORY: Clear bilaterally, unlabored CARDIOVASCULAR: Regular rate and rhythm, no murmur ABDOMEN: Soft, nondistended EXTREMITIES: No edema, warm, perfused NEURO: Alert, moves all extremities equally, ambulatory. Deafness noted. Discharge Data Data Completed and Pending Labs on day of discharge: Labs from last 24 hours 12/16/20 12/16/20 05:55 05:55 WBC 9.4 RBC 5.25 Hgb 14.6 Hct 43.4 MCV 82.7 MCH 27.8 MCHC 33.6 RDW 14.0 Plt Count 294 MPV 9.7 Neut % (Auto) 54.8 Lymph % (Auto) 31.2 [place] % (Auto) 8.2 Eos % (Auto) 4.7 Baso % (Auto) 1.1 Lymph # (Auto) 2.94 [place] # (Auto) 0.77 Eos # (Auto) 0.44 Baso # (Auto) 0.10 Absolute Neutrophils 5.17 Sodium 139 Potassium 3.8 Chloride 102 Carbon Dioxide 24 Anion Gap 13.0 BUN 6 Creatinine 0.7 GFR Calculation 106 Glucose 85 Uric Acid 4.6 Calcium 9.0 Phosphorus 3.4 Magnesium 2.2 Total Bilirubin 0.3 Direct Bilirubin < 0.2 GGT 19 AST 28 ALT 36 Alkaline Phosphatase 76 Lactate Dehydrogenase 186 Total Protein 7.3 Albumin 3.8 Globulin 3.5 Albumin/Globulin Ratio 1.1 Triglycerides 162 H Preliminary micro results at discharge 12/13/20 10:30 Blood Culture - Preliminary Blood 12/13/20 09:58 Blood Culture - Preliminary Blood Discharge Plan Patient/Caregiver Discharge Instructions Activity: resume usual activities as tolerated Diet: Regular Diet Prescriptions: New cefdinir 300 mg capsule 300 mg PO BID Qty: 2 RF: 0 Continued levothyroxine 75 mcg tablet See Rx Instructions .ROUTE .COMPLEX Qty: 90 RF: 3 [place] 3-6-9 1,200 mg capsule 1,200 mg PO DAILY [facility]: 0 ascorbic acid (vitamin C) 500 mg tablet 1 g PO DAILY [facility]: 0 cholecalciferol (vitamin D3) 25 mcg (1,000 unit) capsule 1,000 unit PO DAILY RF: 0 albuterol sulfate 90 mcg/actuation aerosol powdr breath activated 2 inh inhalation Q6H PRN (Reason: shortness of breath or wheezing) Qty: 1 RF: 2 vitamin B complex 1 EACH tablet 1 each PO DAILY RF: 0 Follow Up Plan Follow up with: Ruma Snyder ARNP [Primary Care Provider] - (1 week) Patient Disposition: Home, Self-Care Overall status at discharge: patient is back to baseline Discharge Orders: Discharge Order (Routine); Ordered 12/16/20 Ordered By: Zaida HEMPHILL VTE Deep Vein Thrombosis/Pulmonary Embolism Present on Admission: No
== END 2020-12-16 12:34 | disposition home or self-care (01) | DRG 193 ==
LOC: ED 08:57 → MEDSUR 14:35
PROVIDERS: ADMIT Internal Medicine; ATTEND Internal Medicine